=== PATIENT | female | born 1950 | race Caucasian/White ===

== ENCOUNTER 2018-09-28 09:26 | Outpatient (CLI) | payer OTHER, BC | END 2018-09-28 20:54 | disposition home or self-care (01) | LOC: SMA 09:26 | PROVIDERS: ATTEND Obstetrics & Gynecology Gynecology | DX: Z12.31 Encounter for screening mammogram for malignant neoplasm of breast (principal) | CPT/HCPCS: 77067 ==

== ENCOUNTER 2020-04-08 08:07 | Outpatient (CLI) | payer OTHER, BC | END 2020-04-08 18:55 | disposition home or self-care (01) | LOC: SMA 08:07 | PROVIDERS: ATTEND Obstetrics & Gynecology Gynecology | DX: Z12.31 Encounter for screening mammogram for malignant neoplasm of breast (principal) | CPT/HCPCS: 77067 ==